=== PATIENT | male | born 1955 | race Two or more races ===

== ENCOUNTER 2016-08-01 12:04 | Inpatient (IN) | payer BC ==
[~2016-08-01] VITALS: Ht 188 cm; Wt 102.0 kg
[2016-08-01] MEDS ORDERED: MAGNESIUM HYDROXIDE 30ML CUP PO PRN (14:30)
[2016-08-01] MEDS ORDERED: BISACODYL 10 MG SUPP PR PRN (14:30)
[2016-08-01] MEDS ORDERED: LACTULOSE 30ML CUP PO PRN (14:30)
[2016-08-01 14:31] VITALS: Ht 188 cm; Wt 102.0 kg
[2016-08-01 14:43] VITALS: BP 131/67; PULSE 85; RESP 18
[2016-08-01] MEDS ORDERED: ACETAMINOPHEN 325 MG TAB PO PRN (15:00)
[2016-08-01] MEDS ORDERED: GLUCOSE GEL 15 GRAM TUBE PO PRN ×2 (15:30)
[2016-08-01] MEDS ORDERED: GLUCAGON 1 MG INJ IM PRN (15:30)
[2016-08-01] MEDS ORDERED: DEXTROSE 50% 50 ML SYRINGE IV PRN ×2 (15:30)
[2016-08-01] MEDS ORDERED: GLUCOSE GEL 15 GRAM TUBE BUCCAL PRN (15:30)
[2016-08-01] MEDS: INSULIN ASPART [NOVOLOG] 3 ML PEN SC SCH ×3 (17:13→21:00)
[2016-08-01] MEDS: HYDROCODONE/APAP (5/325) TAB PO PRN ×2 (17:57→21:45)
[2016-08-01 20:00] VITALS: BP 129/62; PULSE 79; RESP 18
[2016-08-01] MEDS: SENNA TAB PO SCH (20:15)
[2016-08-01] MEDS: NASACORT NASAL SCH (20:15)
[2016-08-01] MEDS: ATORVASTATIN 20 MG TAB PO SCH (20:15)
[2016-08-01] MEDS: MONTELUKAST 10 MG TAB PO SCH (20:15)
[2016-08-01] MEDS: DOCUSATE SODIUM 100 MG CAP PO SCH (20:15)
[2016-08-01] MEDS: INSULIN GLARGINE [LANtus] 3 ML PEN SC SCH (21:44)
[2016-08-01 23:38] LABS: ADD UMIC NO; URINE BILIRUBIN (Dip) 1+ (NEGATIVE); URINE BLOOD (Dip) NEGATIVE (NEGATIVE); URINE COLOR YELLOW (YELLOW); URINE KETONES (Dip) TRACE (NEGATIVE); URINE LEUKOCYTE ESTERASE (Dip) NEGATIVE (NEGATIVE); URINE NITRITE (Dip) NEGATIVE (NEGATIVE); URINE TOTAL PROTEIN (Dip) NEGATIVE (NEGATIVE); URINE UROBILINOGEN (Dip) >8.0 E.U./dL (0.1-1.0)
[2016-08-01 23:50] LABS: ICTOTEST NEGATIVE (NEGATIVE)
[2016-08-02] MEDS ORDERED: ACETAMINOPHEN 325 MG TAB PO PRN (01:30)
[2016-08-02] MEDS: ACCUCHECK XX SCH (02:00)
[2016-08-02 07:00] VITALS: BP 130/70; RESP 18
[2016-08-02 08:00] VITALS: BP 130/60; RESP 18
[2016-08-02] MEDS: ASPIRIN 81 MG TAB PO SCH (08:09)
[2016-08-02] MEDS: HYDROCODONE/APAP (5/325) TAB PO PRN ×3 (08:09→20:50)
[2016-08-02] MEDS: FISH OIL 1,000 MG CAP PO SCH (08:09)
[2016-08-02] MEDS: DOCUSATE SODIUM 100 MG CAP PO SCH ×2 (08:09→20:49)
[2016-08-02] MEDS: LISINOPRIL 10 MG TAB PO SCH (08:10)
[2016-08-02] MEDS: INSULIN ASPART [NOVOLOG] 3 ML PEN SC SCH ×7 (08:17→20:52)
[2016-08-02 08:38] LABS: BASOPHIL # 0.1 10^3/ul (0.0-0.1); BASOPHILS % 0.6 % (0.0-2.0); EOSINOPHILS # 0.6 10^3/ul (0.0-0.5); EOSINOPHILS % 7.1 % (0.0-7.0); HEMATOCRIT 38.4 % (42.0-52.0); HEMOGLOBIN 12.8 g/dl (14.0-18.0); LYMPHOCYTES # 1.5 10^3/ul (0.8-2.9); MEAN CORPUSCULAR HGB CONC 33.3 g/dl (32.0-37.0); MEAN CORPUSCULAR VOLUME 93.1 fl (82.0-101.0); MEAN PLATELET VOLUME 7.5 fl (7.4-10.4); MONOCYTE # 0.8 10^3/ul (0.3-0.9); MONOCYTES % 10.1 % (0.0-11.0); NEUTROPHIL # 5.4 10^3/ul (1.6-7.5); NEUTROPHILS % 64.2 % (39.0-77.0); PLATELET COUNT 421 10^3/UL (140-440); RED BLOOD COUNT 4.12 10^6/ul (4.70-6.10); RED CELL DISTRIBUTION WIDTH 12.7 % (11.5-14.5); UNCORRECTED WBC 8.4 10^3/ul (4.8-10.8); WHITE BLOOD COUNT 8.4 10^3/ul (4.8-10.8)
[2016-08-02 08:43] LABS: CONDITION 1
[2016-08-02 08:56] LABS: ALBUMIN 3.9 g/dl (3.3-4.9); POTASSIUM 4.5 mmol/L (3.5-5.1)
[2016-08-02 08:58] LABS: BILIRUBIN,INDIRECT 0.7 mg/dl (0-1.1); BILIRUBIN,TOTAL 0.7 mg/dl (0.2-1.3); CREATININE 0.73 mg/dl (0.61-1.24)
[2016-08-02 08:59] LABS: ALBUMIN/GLOBULIN RATIO 1.08; CALCIUM 9.2 mg/dl (8.4-10.2); TOTAL PROTEIN 7.5 g/dl (6.1-8.1)
[2016-08-02] MEDS: INSULIN GLARGINE [LANtus] 3 ML PEN SC SCH ×2 (09:29→20:52)
--- NOTE | 2016-08-02 13:52 | CONS ---
DATE OF ADMISSION: 08/01/2016 DATE OF CONSULTATION: 08/02/2016 REHABILITATION POST ADMISSION PHYSICIAN EVALUATION REHABILITATION IMPAIRMENT CATEGORY: Left intertrochanteric hip fracture status post intramedullary rodding. ACTIVE COMORBIDITIES: 1. Acute pain syndrome. 2. Diabetes mellitus. 3. Hypertension. 4. Hyperlipidemia. 5. History of left tib/fib and patellar fracture, status post open reduction internal fixation. 6. Impairments in self-care and mobility. HISTORY OF PRESENT ILLNESS: The patient is a pleasant 60-year-old gentleman who is status post a mechanical fall with a resultant left intertrochanteric hip fracture. The patient underwent intramedullary rodding with a postoperative course notable for constipation, acute pain, and significant impairments in self-care and mobility as compared to baseline. The patient has been cleared to transfer to the rehabilitation unit for comprehensive interdisciplinary rehab care. FUNCTIONAL HISTORY: Prior to recent events, he was independent in self-care tasks and mobility. Currently the patient requires moderate assist for self- care activities, minimal to moderate assist for mobility tasks. I have reviewed the preadmission screen and the patient's current functional status is consistent with the preadmission screen. SOCIAL HISTORY: The patient reports living at home alone and hopes to return there upon discharge. PAST MEDICAL HISTORY: 1. Hypertension. 2. Diabetes mellitus. 3. Obesity. 4. Hyperlipidemia. 5. History of left tib/fib and patellar fracture, status post ORIF. CURRENT MEDICATIONS: 1. Aspirin 81 mg p.o. daily. 2. Lantus 30 units subcutaneous b.i.d. 3. NovoLog 25 units subcutaneous t.i.d. 4. Lisinopril 10 mg p.o. daily. 5. Singulair 10 mg p.o. daily. 6. Fish oil 500 mg p.o. daily. 7. Lipitor 20 mg p.o. at bedtime. 8. Butner p.r.n. ALLERGIES: OXYCODONE. PHYSICAL EXAMINATION: VITAL SIGNS: The patient is currently afebrile, with stable vital signs. HEENT: Extraocular motions intact. Oropharynx is clear. NECK: Supple. LUNGS: Clear anteriorly. CARDIAC: S1, S2. ABDOMEN: Soft, nontender, positive bowel sounds. NEUROLOGIC: He is awake, alert and oriented x3. He can follow simple 1-step commands. Cranial nerves appear grossly intact. He has good strength in the bilateral upper extremities and the right lower extremity. Dorsiflexion and plantar flexion are intact on the left. PLAN: The patient has been admitted for comprehensive interdisciplinary acute rehab and is anticipated to tolerate 3 hours of daily therapy in divided doses for at least 5/7 days a week. Treatment plan will include: 1. Physical therapy to focus on bed mobility, transfers, and household ambulation, with the goal of having the patient reach a standby assist level. 2. Occupational therapy to focus on hygiene, grooming, dressing, bathing, and toileting activities, with the goal of having the patient reach a standby assist level. 3. Rehabilitation nursing for carryover of therapeutic interventions, with the goal of continent of bowel and bladder and the goal of pain adequately managed on oral medications. ESTIMATED LENGTH OF STAY: 10 days. DISPOSITION GOAL: Home. Rehabilitation Barrier: Pain Intervention for Barrier: Interdisciplinary rehab I acknowledge that I have performed a full physical examination on this patient within 24 hours of admission to the rehabilitation unit and believe the patient is a good candidate for comprehensive interdisciplinary rehab care and is anticipated to make reasonable goals in a reasonable period of time, as outlined above. Dictated By: BUDDY ESQUIVEL/WARNER Conf#: [id number] DID#: [id number]
[2016-08-02] MEDS: PANTOPRAZOLE (EC) 40 MG TAB PO SCH (14:43)
--- NOTE | 2016-08-02 17:47 | HP ---
DATE OF ADMISSION: 08/01/2016 CHIEF COMPLAINT: Status post hip fracture. HISTORY OF PRESENT ILLNESS: This is a 60-year-old male with a past medical history of type 1 diabet es, history of hypertension, dyslipidemia, who was admitted to [facility] after suffering a ground level fall causing an intertrochanteric fracture. The patient was [facility], underwent successful ORIF by Dr. Yu. The patient had no immediate postoperative complications; however, there was a significant decline in premorbid status. As a result, the patient was brought to the [facility] for continued care. Upon my evaluation, the patient at this time, is currently stable. Denies any fevers, chills, nause a, vomiting or shortness of breath. PAST MEDICAL HISTORY: History of hypertension, diabetes, obesity, dyslipidemia. PAST SURGICAL HISTORY: The patient has had orthopedic surgery of his left knee. FAMILY HISTORY: No family history of kidney disease, heart disease. SOCIAL HISTORY: Does not drink, smoke or do drugs. MEDICATIONS: The patient's medications have been reviewed. REVIEW OF SYSTEMS: A 14-point review of systems was conducted. Pertinent positives as stated in HP I; otherwise, negative. PHYSICAL EXAMINATION VITAL SIGNS: Blood pressure is 130/60, respiration 18, pulse 79, temperature 98.1. HEENT: Head is normocephalic. NECK: Supple. HEART: Regular rate. LUNGS: Diminished breath sounds at base. ABDOMEN: Soft, nontender to palpation. No rebound or guarding. EXTREMITIES: Negative for clubbing, cyanosis, edema. DERMATOLOGIC: No rashes. MUSCULOSKELETAL: No joint effusion. Patient has dressing over his left hip; clean, dry, intact. NEUROLOGIC: No focal deficits. LABORATORY DATA: Shows sodium 139, potassium 4.5, chloride 98, BUN 16, creatinine 0.73. White coun t 8.4, hemoglobin 12.8, hematocrit 38.4, platelet count is 421. Patient's urine cultures no growth after 24 hours. ASSESSMENT AND PLAN This is a 60-year-old male who presents with: 1. Status post open reduction internal fixation of the left hip. The patient is currently stable. Plan is for PT/OT. Continue pain control, deep venous thrombosis prophylaxis with Lovenox. 2. Type 1 diabetes. Continue current insulin regimen, Accu-Cheks, insulin sliding scale. 3. Dyslipidemia. Continue statin therapy. 4. History of hypertension. Blood pressure currently controlled. Continue current blood pressure regimen. 5. HISTORY OF ALLERGIES. Continue Singulair. 6. Gastrointestinal and deep venous thrombosis prophylaxis. Continue Lovenox and Protonix. 7. Hyperlipidemia. Continue fish oil. 8. Mild anemia. Monitor hemoglobin and hematocrit levels. Please note I spent up to 20 minutes' time discussing the patient's code status. THE PATIENT IS FUL L CODE. Dictated By: ARMANDO ATWOOD/WARNER Conf#: [id number] DID#: [id number]
[2016-08-02 20:00] VITALS: BP 130/64; PULSE 73; RESP 20
[2016-08-02] MEDS: NASACORT NASAL SCH (20:49)
[2016-08-02] MEDS: SENNA TAB PO SCH (20:50)
[2016-08-02] MEDS: MONTELUKAST 10 MG TAB PO SCH (20:50)
[2016-08-02] MEDS: ATORVASTATIN 20 MG TAB PO SCH (20:50)
[2016-08-03] MEDS: ACCUCHECK XX SCH (02:00)
[2016-08-03] MEDS: PANTOPRAZOLE (EC) 40 MG TAB PO SCH (06:00)
[2016-08-03] MEDS: HYDROCODONE/APAP (5/325) TAB PO PRN ×3 (06:02→21:50)
[2016-08-03 07:30] VITALS: BP 116/64; RESP 18
[2016-08-03 08:00] VITALS: BP 116/64; PULSE 81; RESP 18
[2016-08-03] MEDS: INSULIN ASPART [NOVOLOG] 3 ML PEN SC SCH ×7 (08:51→21:00)
[2016-08-03] MEDS: INSULIN GLARGINE [LANtus] 3 ML PEN SC SCH ×2 (08:52→22:04)
[2016-08-03] MEDS: ENOXAPARIN 40 MG/0.4 ML SYG SC SCH (08:53)
[2016-08-03] MEDS: FISH OIL 1,000 MG CAP PO SCH ×2 (09:00→21:51)
[2016-08-03] MEDS: ASPIRIN 81 MG TAB PO SCH (09:00)
[2016-08-03] MEDS: LISINOPRIL 10 MG TAB PO SCH (09:00)
[2016-08-03] MEDS: DOCUSATE SODIUM 100 MG CAP PO SCH ×2 (09:00→21:56)
--- NOTE | 2016-08-03 18:11 | PN ---
DATE: SUBJECTIVE: The patient is stable. No acute events overnight. No fevers, chills, nausea, vomiting , shortness of breath. OBJECTIVE: VITAL SIGNS: Blood pressure 116/64, respiration 18, pulse 81, temperature 98.9. HEENT: Head is normocephalic. NECK: Supple. HEART: Regular rate. LUNGS: Show diminished breath sounds at base. ABDOMEN: Soft, nontender to palpation. No rebound or guarding. EXTREMITIES: Negative for clubbing, cyanosis, edema. DERMATOLOGIC: No rashes. MUSCULOSKELETAL: No joint effusions. NEUROLOGIC: No change in exam. MEDICATIONS: Reviewed. LABORATORY DATA: Have been reviewed. ASSESSMENT AND PLAN: 1. Status post open reduction, internal fixation of the left hip. The patient is currently stable. Continue PT, OT. 2. Type 1 diabetes with episode of hypoglycemia. The patient's insulin regimen will be adjusted. We will place an endocrine consult, Dr. Padilla, for evaluation. 3. therapy. 4. Hypertension. Continue current blood pressure regimen. 5. Dyslipidemia. Continue fish oil. 6. Anemia. Continue to monitor hemoglobin and hematocrit levels. 7. GI and DVT prophylaxis. Continue PPI and Lovenox. Dictated By: ARMANDO ATWOOD/WARNER Conf#: [id number] DID#: [id number]
[2016-08-03 20:00] VITALS: BP 118/56; PULSE 80; RESP 18
[2016-08-03 20:10] VITALS: BP 118/56; RESP 18
[2016-08-03] MEDS ORDERED: INSULIN GLARGINE [LANtus] 3 ML PEN SC SCH (21:00)
[2016-08-03] MEDS: NASACORT NASAL SCH (21:49)
[2016-08-03] MEDS: SENNA TAB PO SCH (21:51)
[2016-08-03] MEDS: ATORVASTATIN 20 MG TAB PO SCH (21:51)
[2016-08-03] MEDS: MONTELUKAST 10 MG TAB PO SCH (21:52)
[2016-08-04] MEDS: ACCUCHECK XX SCH (02:00)
[2016-08-04] MEDS: PANTOPRAZOLE (EC) 40 MG TAB PO SCH (06:17)
[2016-08-04] MEDS: HYDROCODONE/APAP (5/325) TAB PO PRN ×4 (07:14→21:02)
[2016-08-04 07:30] VITALS: BP 128/63; RESP 18
[2016-08-04 07:53] LABS: ALBUMIN 3.8 g/dl (3.3-4.9); POTASSIUM 5.6 mmol/L (3.5-5.1)
[2016-08-04 07:55] LABS: CREATININE 0.78 mg/dl (0.61-1.24)
[2016-08-04 07:56] LABS: ALBUMIN/GLOBULIN RATIO 1.05; BILIRUBIN,INDIRECT 0.6 mg/dl (0-1.1); BILIRUBIN,TOTAL 0.6 mg/dl (0.2-1.3); CALCIUM 9.1 mg/dl (8.4-10.2); TOTAL PROTEIN 7.4 g/dl (6.1-8.1)
[2016-08-04] MEDS: FISH OIL 1,000 MG CAP PO SCH ×2 (07:58→21:01)
[2016-08-04] MEDS: LISINOPRIL 10 MG TAB PO SCH (08:01)
[2016-08-04] MEDS: ASPIRIN 81 MG TAB PO SCH (08:01)
[2016-08-04] MEDS: INSULIN GLARGINE [LANtus] 3 ML PEN SC SCH ×2 (08:03→22:36)
[2016-08-04] MEDS: INSULIN ASPART [NOVOLOG] 3 ML PEN SC SCH ×7 (08:03→21:00)
[2016-08-04] MEDS: ENOXAPARIN 40 MG/0.4 ML SYG SC SCH (08:05)
[2016-08-04] MEDS: DOCUSATE SODIUM 100 MG CAP PO SCH ×2 (09:08→21:01)
[2016-08-04] MEDS ORDERED: HYDROCODONE/APAP (5/325) TAB PO PRN (10:00)
--- NOTE | 2016-08-04 10:31 | PN ---
DATE: 08/04/2016 SUBJECTIVE: The patient is stable, no acute events overnight. No fevers, chills, nausea or vomitin g. No shortness of breath. OBJECTIVE: VITAL SIGNS: Blood pressure is 120/60, respiration 18, pulse 58 and temperature 98.3. HEENT: Head is normocephalic. NECK: Supple. HEART: Regular rate. LUNGS: Show diminished breath sounds at base. ABDOMEN: Soft, nontender to palpation. No rebound or guarding. EXTREMITIES: Negative for clubbing, cyanosis and no edema. DERMATOLOGIC: No rashes. MUSCULOSKELETAL: No joint effusions. NEUROLOGIC: No change in exam. MEDICATIONS: The patient's medications have been reviewed. LABORATORY DATA: Shows sodium 135, potassium 5.6, BUN 18, creatinine 0.78 and glucose is 300. ASSESSMENT AND PLAN: 1. Status post open reduction internal fixation of the left hip. The patient is currently stable. Continue PT, OT. 2. Type 1 diabetes with intermittent episodes of hypoglycemia. Continue current insulin regimen. Greatly appreciate Dr. Padilla's help with management. 3. Hyperkalemia. Etiology is likely due to underlying hypoglycemia and insulinopenic state. The p alcides would be to give insulin. Once the patient is euglycemic, expect the potassium levels to normal ize. Will repeat a potassium level and monitor. 4. Hypertension. Continue current blood pressure regimen. 5. Dyslipidemia. Continue fish oil. 6. Anemia. Continue to monitor H and H levels. 7. Gastrointestinal and deep venous thrombosis prophylaxis. Continue proton pump inhibitor and Tori enox. Dictated By: ARMANDO ATWOOD/WARNER Conf#: [id number] DID#: [id number]
--- NOTE | 2016-08-04 11:26 | CONS ---
Date/Time of Note Date/Time of Note DATE: 08/04/16 TIME: 11:24 Consult Date/Type/Reason Admit Date/Time Aug 01, 2016 at 12:06 Initial Consult Date Subjective Pain improving Objective min assist ambulation Vital Signs Date Time Temp Pulse Resp B/P Pulse Ox O2 Delivery O2 Flow Rate FiO2 08/04/16 07:30 98.3 78 18 128/63 94 08/03/16 20:00 Room Air Intake and Output 08/03/16 08/03/16 08/04/16 14:59 22:59 06:59 Intake Total 720 ml 1310 ml 360 ml Output Total 500 ml 1000 ml Balance 220 ml 1310 ml -640 ml Results/Medications Result Diagram: 08/02/16 0735 08/04/16 0636 Results 24 hrs Laboratory Tests Test 08/03/16 17:13 08/03/16 20:06 08/03/16 21:08 08/03/16 22:00 Bedside Glucose 74 74 96 121 Test 08/04/16 06:36 08/04/16 07:19 Alanine Aminotransferase (ALT/SGPT) 21 Albumin 3.8 Albumin/Globulin Ratio 1.05 Alkaline Phosphatase 123 H Anion Gap 18 H Aspartate Amino Transf (AST/SGOT) 27 Blood Urea Nitrogen 18 Calcium Level 9.1 Carbon Dioxide Level 26 Chloride Level 97 Creatinine 0.78 Direct Bilirubin 0.00 Globulin 3.60 H Glucose Level 299 #H Hemoglobin A1c 8.0 H Indirect Bilirubin 0.6 Potassium Level 5.6 H Sodium Level 135 Total Bilirubin 0.6 Total Protein 7.4 Bedside Glucose 350 H Medications Current Medications Docusate Sodium (Colace) 100 mg BID PO Last administered on 08/04/16 09:08; Admin Dose 100 MG; Start 08/01/16 at 21:00 Senna (Senokot) 1 tab HS PO Last administered on 08/03/16 21:51; Admin Dose 1 TAB; Start 08/01/16 at 21:00 Magnesium Hydroxide (Milk Of Mag) 30 ml BID PRN PO CONSTIPATION; Start at 14:30 Lactulose (Enulose) 20 gm DAILY PRN PO CONSTIPATION; Start 08/01/16 at 14:30 Bisacodyl (Dulcolax Supp) 10 mg DAILY PRN [place] CONSTIPATION; Start 08/01/16 at 14:30 Patient Own Medication 1 ea HS NASAL Last administered on 08/03/16 21:49; Admin Dose 1 EA; Start 08/01/16 at 21:00 Diagnostic Test (Pha) (Accucheck) 1 ea 02 XX ; Start 08/02/16 at 02:00 Aspirin (Aspirin) 81 mg DAILY PO Last administered on 08/04/16 08:01; Admin Dose 81 MG; Start 08/02/16 at 09:00 Lisinopril (Zestril) 10 mg DAILY PO Last administered on 08/04/16 08:01; Admin Dose 10 MG; Start 08/02/16 at 09:00 Montelukast Sodium (Singulair) 10 mg HS PO Last administered on 08/03/16 21:52 ; Admin Dose 10 MG; Start 08/01/16 at 21:00 Atorvastatin Calcium (Lipitor) 20 mg HS PO Last administered on 08/03/16 21:51 ; Admin Dose 20 MG; Start 08/01/16 at 21:00 Acetaminophen (Tylenol Tab) 650 mg Q6H PRN PO PAIN AND OR ELEVATED TEMP; Start 08/01/16 at 15:00 Miscellaneous Information 1 ea NOTE XX ; Start 08/01/16 at 15:30 Glucose (Glutose) 15 gm Q15M PRN PO DECREASED GLUCOSE; Start 08/01/16 at 15:30 Glucose (Glutose) 22.5 gm Q15M PRN PO DECREASED GLUCOSE; Start 08/01/16 at 15: 30 Dextrose (D50w Syringe) 25 ml Q15M PRN IV DECREASED GLUCOSE; Start 08/01/16 at 15:30 Dextrose (D50w Syringe) 50 ml Q15M PRN IV DECREASED GLUCOSE; Start 08/01/16 at 15:30 Glucagon (Glucagen) 1 mg Q15M PRN IM DECREASED GLUCOSE; Start 08/01/16 at 15: 30 Glucose (Glutose) 15 gm Q15M PRN BUCCAL DECREASED GLUCOSE; Start 08/01/16 at 15:30 Enoxaparin Sodium (Lovenox) 40 mg DAILY SC Last administered on 08/04/16 08:05 ; Admin Dose 40 MG; Start 08/03/16 at 09:00 Pantoprazole (Protonix Tab) 40 mg DAILY@06 PO Last administered on 08/04/16 06: 17; Admin Dose 40 MG; Start 08/02/16 at 13:30 Fish Oil (Fish Oil) 2,000 mg BID PO Last administered on 08/04/16 07:58; Admin Dose 2,000 MG; Start 08/03/16 at 21:00 Insulin Glargine (Lantus) 20 unit QHS SC Last administered on 08/03/16 22:04; Admin Dose 10 UNIT; Start 08/03/16 at 21:00 Insulin Glargine (Lantus) 30 unit QAM SC Last administered on 08/04/16 08:03; Admin Dose 30 UNIT; Start 08/04/16 at 09:00 Acetaminophen/ Hydrocodone Bitart ([place] (5/325)) 2 tab Q4H PRN PO PAIN LEVEL 6 -10 Last administered on 08/04/16 09:41; Admin Dose 1 TAB; Start 08/04/16 at 09: 30 Acetaminophen/ Hydrocodone Bitart ([place] (5/325)) 1 tab Q4H PRN PO PAIN LEVEL 1 -5; Start 08/04/16 at 10:00 Assessment/Plan Additional Assessment/Plan Rehab- Left intertrochanteric hip fracture status post intramedullary rodding. Excellent progress with rehab Acute pain syndrome-improving Diabetes mellitus. Hypertension. Hyperlipidemia. History of left tib/fib and patellar fracture, status post open reduction internal fixation. BUDDY DUGGAN MD Aug 04, 2016 11:26
[2016-08-04 19:10] VITALS: BP 128/68; RESP 18
[2016-08-04] MEDS: ATORVASTATIN 20 MG TAB PO SCH (21:01)
[2016-08-04] MEDS: SENNA TAB PO SCH (21:01)
[2016-08-04] MEDS: MONTELUKAST 10 MG TAB PO SCH (21:01)
[2016-08-04] MEDS: NASACORT NASAL SCH (21:01)
[2016-08-05] MEDS: ACCUCHECK XX SCH (02:00)
[2016-08-05] MEDS: HYDROCODONE/APAP (5/325) TAB PO PRN ×4 (02:51→19:33)
[2016-08-05] MEDS: PANTOPRAZOLE (EC) 40 MG TAB PO SCH (06:21)
[2016-08-05 07:30] VITALS: BP 121/59; RESP 18
[2016-08-05] MEDS: INSULIN ASPART [NOVOLOG] 3 ML PEN SC SCH ×7 (07:35→21:00)
[2016-08-05] MEDS: FISH OIL 1,000 MG CAP PO SCH ×2 (08:34→21:10)
[2016-08-05] MEDS: LISINOPRIL 10 MG TAB PO SCH (08:34)
[2016-08-05] MEDS: DOCUSATE SODIUM 100 MG CAP PO SCH ×2 (08:34→21:10)
[2016-08-05] MEDS: ASPIRIN 81 MG TAB PO SCH (08:34)
[2016-08-05] MEDS: ENOXAPARIN 40 MG/0.4 ML SYG SC SCH (08:35)
[2016-08-05] MEDS: INSULIN GLARGINE [LANtus] 3 ML PEN SC SCH ×2 (08:36→21:15)
--- NOTE | 2016-08-05 11:10 | CONS ---
Date/Time of Note Date/Time of Note DATE: 08/05/16 TIME: 11:10 Consult Date/Type/Reason Admit Date/Time Aug 01, 2016 at 12:06 Subjective Pain under adequate control Objective Vital Signs Date Time Temp Pulse Resp B/P Pulse Ox O2 Delivery O2 Flow Rate FiO2 08/05/16 07:30 97.8 74 18 121/59 95 08/03/16 20:00 Room Air Intake and Output 08/04/16 08/04/16 08/05/16 15:00 23:00 07:00 Intake Total 480 ml 640 ml 300 ml Output Total 775 ml 750 ml Balance -295 ml -110 ml 300 ml INTERDISCIPLINARY TEAM CONFERENCE BOWEL- Cont BLADDER-Cont SKIN- intact OT- DRESSING-sba/min BATHING-sba/min TOILETING-min PT- BED MOBILITY-min TRANSFERS-min AMBULATION-min 100 feet A/P- Interdisciplinary team conference held today. Please see interdisciplinary sheet. Working toward d.c. on 08/08 with post discharge follow up of physical therapy, occupational therapy. Results/Medications Result Diagram: 08/02/16 0735 08/04/16 1424 Results 24 hrs Laboratory Tests Test 08/04/16 12:02 08/04/16 14:24 08/04/16 16:33 08/04/16 17:14 Bedside Glucose 230 H 59 L 105 Potassium Level 4.5 Test 08/04/16 17:33 08/04/16 21:30 08/04/16 21:55 08/04/16 22:31 Bedside Glucose 96 77 96 96 Test 08/05/16 07:22 Bedside Glucose 324 H Medications Current Medications Docusate Sodium (Colace) 100 mg BID PO Last administered on 08/05/16 08:34; Admin Dose 100 MG; Start 08/01/16 at 21:00 Senna (Senokot) 1 tab HS PO Last administered on 08/04/16 21:01; Admin Dose 1 TAB; Start 08/01/16 at 21:00 Magnesium Hydroxide (Milk Of Mag) 30 ml BID PRN PO CONSTIPATION; Start at 14:30 Lactulose (Enulose) 20 gm DAILY PRN PO CONSTIPATION; Start 08/01/16 at 14:30 Bisacodyl (Dulcolax Supp) 10 mg DAILY PRN [place] CONSTIPATION; Start 08/01/16 at 14:30 Patient Own Medication 1 ea HS NASAL Last administered on 08/04/16 21:01; Admin Dose 1 EA; Start 08/01/16 at 21:00 Diagnostic Test (Pha) (Accucheck) 1 ea 02 XX ; Start 08/02/16 at 02:00 Aspirin (Aspirin) 81 mg DAILY PO Last administered on 08/05/16 08:34; Admin Dose 81 MG; Start 08/02/16 at 09:00 Lisinopril (Zestril) 10 mg DAILY PO Last administered on 08/05/16 08:34; Admin Dose 10 MG; Start 08/02/16 at 09:00 Montelukast Sodium (Singulair) 10 mg HS PO Last administered on 08/04/16 21:01 ; Admin Dose 10 MG; Start 08/01/16 at 21:00 Atorvastatin Calcium (Lipitor) 20 mg HS PO Last administered on 08/04/16 21:01 ; Admin Dose 20 MG; Start 08/01/16 at 21:00 Acetaminophen (Tylenol Tab) 650 mg Q6H PRN PO PAIN AND OR ELEVATED TEMP; Start 08/01/16 at 15:00 Miscellaneous Information 1 ea NOTE XX ; Start 08/01/16 at 15:30 Glucose (Glutose) 15 gm Q15M PRN PO DECREASED GLUCOSE; Start 08/01/16 at 15:30 Glucose (Glutose) 22.5 gm Q15M PRN PO DECREASED GLUCOSE; Start 08/01/16 at 15: 30 Dextrose (D50w Syringe) 25 ml Q15M PRN IV DECREASED GLUCOSE; Start 08/01/16 at 15:30 Dextrose (D50w Syringe) 50 ml Q15M PRN IV DECREASED GLUCOSE; Start 08/01/16 at 15:30 Glucagon (Glucagen) 1 mg Q15M PRN IM DECREASED GLUCOSE; Start 08/01/16 at 15: 30 Glucose (Glutose) 15 gm Q15M PRN BUCCAL DECREASED GLUCOSE; Start 08/01/16 at 15:30 Enoxaparin Sodium (Lovenox) 40 mg DAILY SC Last administered on 08/05/16 08:35 ; Admin Dose 40 MG; Start 08/03/16 at 09:00 Pantoprazole (Protonix Tab) 40 mg DAILY@06 PO Last administered on 08/05/16 06: 21; Admin Dose 40 MG; Start 08/02/16 at 13:30 Fish Oil (Fish Oil) 2,000 mg BID PO Last administered on 08/05/16 08:34; Admin Dose 2,000 MG; Start 08/03/16 at 21:00 Insulin Glargine (Lantus) 20 unit QHS SC Last administered on 08/04/16 22:36; Admin Dose 10 UNIT; Start 08/03/16 at 21:00 Insulin Glargine (Lantus) 30 unit QAM SC Last administered on 08/05/16 08:36; Admin Dose 30 UNIT; Start 08/04/16 at 09:00 Acetaminophen/ Hydrocodone Bitart ([place] (5/325)) 2 tab Q4H PRN PO PAIN LEVEL 6 -10 Last administered on 08/05/16 07:34; Admin Dose 2 TAB; Start 08/04/16 at 09: 30 Acetaminophen/ Hydrocodone Bitart ([place] (5/325)) 1 tab Q4H PRN PO PAIN LEVEL 1 -5; Start 08/04/16 at 10:00 BUDDY DUGGAN MD Aug 05, 2016 11:10
--- NOTE | 2016-08-05 12:02 | PN ---
DATE: 08/05/2016 SUBJECTIVE: The patient is stable, no acute events overnight. No fevers, chills, nausea, vomiting. OBJECTIVE: VITAL SIGNS: Blood pressure is 128/68, respiration 18, pulse 78, temperature 98.5. HEENT: Head is normocephalic. NECK: Supple. HEART: Regular rate. LUNGS: Show diminished breath sounds at base. ABDOMEN: Soft, nontender to palpation without rebound or guarding. EXTREMITIES: Negative for clubbing, cyanosis, no edema. DERMATOLOGIC: No rashes. MUSCULOSKELETAL: No joint effusions. NEUROLOGIC: No change in exam. MEDICATIONS: The patient's medications are reviewed. LABORATORY DATA: Have been reviewed. ASSESSMENT AND PLAN: 1. Status post open reduction and internal fixation left hip. The patient is currently stable. Co ntinue PT, OT. 2. Diabetes type 1. Continue current insulin regimen. Follow up with endocrinology. 3. Hyperkalemia, resolved, etiology is likely due to hypoglycemia. 4. Hypertension. Continue current blood pressure regimen. 5. Dyslipidemia. Continue fish oil. 6. Anemia. Continue to monitor H and H levels. 7. Gastrointestinal and deep venous thrombosis prophylaxis. Continue proton pump inhibitor and Tori enox. Dictated By: ARMANDO ATWOOD/WARNER Conf#: [id number] DID#: [id number]
--- NOTE | 2016-08-05 13:50 | CONS ---
Date/Time of Note Date/Time of Note DATE: 08/05/16 TIME: 13:46 Assessment/Plan Assessment/Plan Problems: (1) Diabetes mellitus type 1 Status: Chronic Comment: In general this gentleman has been managing his diabetes with minimal outside assistance. He receives his care at the [facility]. At this time going to make arrangements that he can modulate the insulin on his own and then as we see how he does try and fine-tune it. 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 Constitutional: no complaints Eyes: no complaints Respiratory: no complaints Cardiovascular: no complaints Gastrointestinal: no complaints Genitourinary: no complaints Musculoskeletal: other (Pain at left) Neurologic: no complaints Endocrine: no complaints Past Medical History Medical History: diabetes (Diabetes mellitus type 1), high cholesterol, hypertension Past Surgical History Status post tib-fib and patellar fracture with ORIF in the remote past; immediately status post ORIF of left hip fracture from a ground-level fall Family History Significant Family History: COPD Social History Alcohol Use: rarely Smoking Status: Former smoker Drug Use: none Exam/Review of Systems Vital Signs Vitals Vital Signs Date Time Temp Pulse Resp B/P Pulse Ox O2 Delivery O2 Flow Rate FiO2 08/05/16 07:30 97.8 74 18 121/59 95 08/03/16 20:00 Room Air Intake and Output 08/04/16 08/04/16 08/05/16 15:00 23:00 07:00 Intake Total 480 ml 640 ml 300 ml Output Total 775 ml 750 ml Balance -295 ml -110 ml 300 ml Exam Constitutional: alert Respiratory: clear to auscultation, normal air movement Cardiovascular: nl pulses, regular rate and rhythm Gastrointestinal: nl liver, spleen, non-tender, soft Results Result Diagram: 08/02/16 0735 08/04/16 1424 Results 24 hrs Laboratory Tests Test 08/04/16 14:24 08/04/16 16:33 08/04/16 17:14 08/04/16 17:33 Potassium Level 4.5 Bedside Glucose 59 L 105 96 Test 08/04/16 21:30 08/04/16 21:55 08/04/16 22:31 08/05/16 07:22 Bedside Glucose 77 96 96 324 H Test 08/05/16 12:00 Bedside Glucose 164 Medications Medications Current Medications Docusate Sodium (Colace) 100 mg BID PO Last administered on 08/05/16 08:34; Admin Dose 100 MG; Start 08/01/16 at 21:00 Senna (Senokot) 1 tab HS PO Last administered on 08/04/16 21:01; Admin Dose 1 TAB; Start 08/01/16 at 21:00 Magnesium Hydroxide (Milk Of Mag) 30 ml BID PRN PO CONSTIPATION; Start at 14:30 Lactulose (Enulose) 20 gm DAILY PRN PO CONSTIPATION; Start 08/01/16 at 14:30 Bisacodyl (Dulcolax Supp) 10 mg DAILY PRN [place] CONSTIPATION; Start 08/01/16 at 14:30 Patient Own Medication 1 ea HS NASAL Last administered on 08/04/16 21:01; Admin Dose 1 EA; Start 08/01/16 at 21:00 Diagnostic Test (Pha) (Accucheck) 1 ea 02 XX ; Start 08/02/16 at 02:00 Aspirin (Aspirin) 81 mg DAILY PO Last administered on 08/05/16 08:34; Admin Dose 81 MG; Start 08/02/16 at 09:00 Lisinopril (Zestril) 10 mg DAILY PO Last administered on 08/05/16 08:34; Admin Dose 10 MG; Start 08/02/16 at 09:00 Montelukast Sodium (Singulair) 10 mg HS PO Last administered on 08/04/16 21:01 ; Admin Dose 10 MG; Start 08/01/16 at 21:00 Atorvastatin Calcium (Lipitor) 20 mg HS PO Last administered on 08/04/16 21:01 ; Admin Dose 20 MG; Start 08/01/16 at 21:00 Acetaminophen (Tylenol Tab) 650 mg Q6H PRN PO PAIN AND OR ELEVATED TEMP; Start 08/01/16 at 15:00 Miscellaneous Information 1 ea NOTE XX ; Start 08/01/16 at 15:30 Glucose (Glutose) 15 gm Q15M PRN PO DECREASED GLUCOSE; Start 08/01/16 at 15:30 Glucose (Glutose) 22.5 gm Q15M PRN PO DECREASED GLUCOSE; Start 08/01/16 at 15: 30 Dextrose (D50w Syringe) 25 ml Q15M PRN IV DECREASED GLUCOSE; Start 08/01/16 at 15:30 Dextrose (D50w Syringe) 50 ml Q15M PRN IV DECREASED GLUCOSE; Start 08/01/16 at 15:30 Glucagon (Glucagen) 1 mg Q15M PRN IM DECREASED GLUCOSE; Start 08/01/16 at 15: 30 Glucose (Glutose) 15 gm Q15M PRN BUCCAL DECREASED GLUCOSE; Start 08/01/16 at 15:30 Enoxaparin Sodium (Lovenox) 40 mg DAILY SC Last administered on 08/05/16 08:35 ; Admin Dose 40 MG; Start 08/03/16 at 09:00 Pantoprazole (Protonix Tab) 40 mg DAILY@06 PO Last administered on 08/05/16 06: 21; Admin Dose 40 MG; Start 08/02/16 at 13:30 Fish Oil (Fish Oil) 2,000 mg BID PO Last administered on 08/05/16 08:34; Admin Dose 2,000 MG; Start 08/03/16 at 21:00 Insulin Glargine (Lantus) 20 unit QHS SC Last administered on 08/04/16 22:36; Admin Dose 10 UNIT; Start 08/03/16 at 21:00 Insulin Glargine (Lantus) 30 unit QAM SC Last administered on 08/05/16 08:36; Admin Dose 30 UNIT; Start 08/04/16 at 09:00 Acetaminophen/ Hydrocodone Bitart ([place] (5/325)) 2 tab Q4H PRN PO PAIN LEVEL 6 -10 Last administered on 08/05/16 12:18; Admin Dose 2 TAB; Start 08/04/16 at 09: 30 Acetaminophen/ Hydrocodone Bitart ([place] (5/325)) 1 tab Q4H PRN PO PAIN LEVEL 1 -5; Start 08/04/16 at 10:00 TEJAS FRIEDMAN MD Aug 05, 2016 13:50
[2016-08-05] MEDS ORDERED: LANT3I SC (17:38)
[2016-08-05] MEDS ORDERED: INSU100C SQ (17:38)
[2016-08-05] MEDS ORDERED: nasacort NASAL (17:38)
[2016-08-05] MEDS ORDERED: ASPI81TA3 PO (17:38)
[2016-08-05] MEDS ORDERED: LISI10TA2 PO (17:38)
[2016-08-05] MEDS ORDERED: MONT10TA21 PO (17:38)
[2016-08-05] MEDS ORDERED: OMEG500C3 PO (17:38)
[2016-08-05] MEDS ORDERED: CRES10 PO (17:38)
[2016-08-05 19:59] VITALS: BP 136/66; RESP 20
[2016-08-05] MEDS: SENNA TAB PO SCH ×2 (21:00→21:10)
[2016-08-05] MEDS: MONTELUKAST 10 MG TAB PO SCH (21:11)
[2016-08-05] MEDS: NASACORT NASAL SCH (21:11)
[2016-08-05] MEDS: ATORVASTATIN 20 MG TAB PO SCH (21:11)
[2016-08-06] MEDS: ACCUCHECK XX SCH (02:00)
[2016-08-06] MEDS: HYDROCODONE/APAP (5/325) TAB PO PRN ×3 (04:47→17:40)
[2016-08-06] MEDS: PANTOPRAZOLE (EC) 40 MG TAB PO SCH (06:47)
[2016-08-06 07:30] VITALS: BP 128/61; RESP 18
[2016-08-06 08:00] VITALS: BP 128/61; PULSE 61; RESP 18
[2016-08-06] MEDS: INSULIN ASPART [NOVOLOG] 3 ML PEN SC SCH ×7 (08:11→20:31)
[2016-08-06] MEDS: ENOXAPARIN 40 MG/0.4 ML SYG SC SCH (08:13)
[2016-08-06] MEDS: INSULIN GLARGINE [LANtus] 3 ML PEN SC SCH ×2 (08:13→20:28)
[2016-08-06] MEDS: FISH OIL 1,000 MG CAP PO SCH ×2 (08:14→20:09)
[2016-08-06] MEDS: DOCUSATE SODIUM 100 MG CAP PO SCH ×2 (08:15→20:09)
[2016-08-06] MEDS: ASPIRIN 81 MG TAB PO SCH (08:15)
[2016-08-06] MEDS: LISINOPRIL 10 MG TAB PO SCH (08:16)
--- NOTE | 2016-08-06 10:47 | PN ---
DATE: 08/06/2016 SUBJECTIVE: The patient is stable, no acute events overnight. No fevers, chills, nausea, vomiting. OBJECTIVE: VITAL SIGNS: Blood pressure 128/61, respirations 18, pulse 61, temperature 98.5. HEENT: Head is normocephalic. NECK: Supple. HEART: Regular rate. LUNGS: Show diminished breath sounds at the base. ABDOMEN: Soft, nontender to palpation. No rebound or guarding. EXTREMITIES: Negative for clubbing, cyanosis. No edema. DERMATOLOGIC: No rashes. MUSCULOSKELETAL: No joint effusions. NEUROLOGIC: No change in exam. MEDICATIONS: The patient's medications have been reviewed. LABORATORY DATA: Has been reviewed. No new labs. ASSESSMENT AND PLAN: 1. Status post open reduction internal fixation of the left hip. The patient is currently stable. Continue PT, OT. 2. Diabetes type. We will continue insulin current regimen. Follow up with endocrinology. 3. Hypokalemia, improved. 4. Hypertension. Continue current blood pressure regimen. 5. Dyslipidemia. Continue the fish oil. 6. Anemia. Continue to monitor hemoglobin and hematocrit levels. 7. GI and DVT prophylaxis. Continue proton pump inhibitors and sequential leg squeezers. Dictated By: ARMANDO ATWOOD/WARNER Conf#: [id number] DID#: [id number]
--- NOTE | 2016-08-06 11:06 | CONS ---
Date/Time of Note Date/Time of Note DATE: 08/06/16 TIME: 11:05 Consult Date/Type/Reason Admit Date/Time Aug 01, 2016 at 12:06 Type of Consultation: Endocrinology Ordering Provider: ARMANDO ARANA DO Subjective C/o constipation Objective Pulm- CTA Card -S1S2 min assist ambulation 150 feet Vital Signs Date Time Temp Pulse Resp B/P Pulse Ox O2 Delivery O2 Flow Rate FiO2 08/06/16 07:30 98.5 61 18 128/61 97 08/03/16 20:00 Room Air Intake and Output 08/05/16 08/05/16 08/06/16 15:00 23:00 07:00 Intake Total 200 ml 720 ml Output Total 300 ml 700 ml Balance -100 ml 20 ml Results/Medications Result Diagram: 08/02/16 0735 08/04/16 1424 Results 24 hrs Laboratory Tests Test 08/05/16 12:00 08/05/16 14:59 08/05/16 15:17 08/05/16 16:45 Bedside Glucose 164 51 L 71 97 Test 08/05/16 20:21 08/05/16 20:45 08/05/16 21:03 08/06/16 02:36 Bedside Glucose 63 L 83 100 85 Test 08/06/16 07:48 Bedside Glucose 208 Medications Current Medications Docusate Sodium (Colace) 100 mg BID PO Last administered on 08/06/16 08:15; Admin Dose 100 MG; Start 08/01/16 at 21:00 Senna (Senokot) 1 tab HS PO Last administered on 08/04/16 21:01; Admin Dose 1 TAB; Start 08/01/16 at 21:00 Magnesium Hydroxide (Milk Of Mag) 30 ml BID PRN PO CONSTIPATION Last administered on 08/06/16 08:16; Admin Dose 30 ML; Start 08/01/16 at 14:30 Lactulose (Enulose) 20 gm DAILY PRN PO CONSTIPATION; Start 08/01/16 at 14:30 Bisacodyl (Dulcolax Supp) 10 mg DAILY PRN [place] CONSTIPATION; Start 08/01/16 at 14:30 Patient Own Medication 1 ea HS NASAL Last administered on 08/05/16 21:11; Admin Dose 1 EA; Start 08/01/16 at 21:00 Diagnostic Test (Pha) (Accucheck) 1 ea 02 XX ; Start 08/02/16 at 02:00 Aspirin (Aspirin) 81 mg DAILY PO Last administered on 08/06/16 08:15; Admin Dose 81 MG; Start 08/02/16 at 09:00 Lisinopril (Zestril) 10 mg DAILY PO Last administered on 08/06/16 08:16; Admin Dose 10 MG; Start 08/02/16 at 09:00 Montelukast Sodium (Singulair) 10 mg HS PO Last administered on 08/05/16 21:11 ; Admin Dose 10 MG; Start 08/01/16 at 21:00 Atorvastatin Calcium (Lipitor) 20 mg HS PO Last administered on 08/05/16 21:11 ; Admin Dose 20 MG; Start 08/01/16 at 21:00 Acetaminophen (Tylenol Tab) 650 mg Q6H PRN PO PAIN AND OR ELEVATED TEMP; Start 08/01/16 at 15:00 Miscellaneous Information 1 ea NOTE XX ; Start 08/01/16 at 15:30 Glucose (Glutose) 15 gm Q15M PRN PO DECREASED GLUCOSE; Start 08/01/16 at 15:30 Glucose (Glutose) 22.5 gm Q15M PRN PO DECREASED GLUCOSE; Start 08/01/16 at 15: 30 Dextrose (D50w Syringe) 25 ml Q15M PRN IV DECREASED GLUCOSE; Start 08/01/16 at 15:30 Dextrose (D50w Syringe) 50 ml Q15M PRN IV DECREASED GLUCOSE; Start 08/01/16 at 15:30 Glucagon (Glucagen) 1 mg Q15M PRN IM DECREASED GLUCOSE; Start 08/01/16 at 15: 30 Glucose (Glutose) 15 gm Q15M PRN BUCCAL DECREASED GLUCOSE; Start 08/01/16 at 15:30 Enoxaparin Sodium (Lovenox) 40 mg DAILY SC Last administered on 08/06/16 08:13 ; Admin Dose 40 MG; Start 08/03/16 at 09:00 Pantoprazole (Protonix Tab) 40 mg DAILY@06 PO Last administered on 08/06/16 06: 47; Admin Dose 40 MG; Start 08/02/16 at 13:30 Fish Oil (Fish Oil) 2,000 mg BID PO Last administered on 08/06/16 08:14; Admin Dose 2,000 MG; Start 08/03/16 at 21:00 Acetaminophen/ Hydrocodone Bitart ([place] (5/325)) 2 tab Q4H PRN PO PAIN LEVEL 6 -10 Last administered on 08/06/16 08:48; Admin Dose 2 TAB; Start 08/04/16 at 09: 30 Acetaminophen/ Hydrocodone Bitart ([place] (5/325)) 1 tab Q4H PRN PO PAIN LEVEL 1 -5; Start 08/04/16 at 10:00 Insulin Glargine (Lantus) 15 unit QHS SC Last administered on 08/05/16 21:15; Admin Dose 15 UNIT; Start 08/05/16 at 21:00 Insulin Glargine (Lantus) 26 unit QAM SC Last administered on 08/06/16 08:13; Admin Dose 25 UNIT; Start 08/06/16 at 09:00 Assessment/Plan Additional Assessment/Plan Rehab- Left IT hip fx-s/p IMR Continued steady progress GI- bowel program DM HTN h.o. L tib/fib/patellar fx and ORIF BUDDY DUGGAN MD Aug 06, 2016 11:06
[2016-08-06] MEDS ORDERED: LACTULOSE 30ML CUP PO PRN (18:30)
[2016-08-06] MEDS: NASACORT NASAL SCH (20:09)
[2016-08-06] MEDS: MONTELUKAST 10 MG TAB PO SCH (20:09)
[2016-08-06] MEDS: SENNA TAB PO SCH (20:09)
[2016-08-06] MEDS: ATORVASTATIN 20 MG TAB PO SCH (20:09)
[2016-08-06 20:28] VITALS: BP 132/60; RESP 18
[2016-08-07] MEDS: ACCUCHECK XX SCH (03:16)
[2016-08-07] MEDS: HYDROCODONE/APAP (5/325) TAB PO PRN ×4 (04:53→20:47)
[2016-08-07] MEDS: PANTOPRAZOLE (EC) 40 MG TAB PO SCH (06:07)
[2016-08-07 07:10] VITALS: BP 120/58; RESP 18
[2016-08-07] MEDS: INSULIN ASPART [NOVOLOG] 3 ML PEN SC SCH ×7 (07:35→20:58)
[2016-08-07] MEDS: INSULIN GLARGINE [LANtus] 3 ML PEN SC SCH ×2 (08:33→20:58)
[2016-08-07] MEDS: ENOXAPARIN 40 MG/0.4 ML SYG SC SCH (08:34)
[2016-08-07] MEDS: DOCUSATE SODIUM 100 MG CAP PO SCH ×2 (08:36→20:47)
[2016-08-07] MEDS: FISH OIL 1,000 MG CAP PO SCH ×2 (08:36→20:46)
[2016-08-07] MEDS: ASPIRIN 81 MG TAB PO SCH (08:36)
[2016-08-07] MEDS: LISINOPRIL 10 MG TAB PO SCH (08:37)
--- NOTE | 2016-08-07 12:11 | CONS ---
Date/Time of Note Date/Time of Note DATE: 08/07/16 TIME: 12:11 Consult Date/Type/Reason Admit Date/Time Aug 01, 2016 at 12:06 Type of Consultation: Endocrinology Ordering Provider: ARMANDO ARANA DO Subjective Results with bowel program Objective sba ambulation Vital Signs Date Time Temp Pulse Resp B/P Pulse Ox O2 Delivery O2 Flow Rate FiO2 08/07/16 07:10 97.8 64 18 120/58 95 08/06/16 08:00 Room Air Intake and Output 08/06/16 08/06/16 08/07/16 15:00 23:00 07:00 Intake Total 720 ml 560 ml Output Total 400 ml Balance 320 ml 560 ml Results/Medications Result Diagram: 08/04/16 1424 Results 24 hrs Laboratory Tests Test 08/06/16 12:12 08/06/16 14:45 08/06/16 14:53 08/06/16 15:19 Bedside Glucose 115 56 L 77 74 Test 08/06/16 15:39 08/06/16 16:54 08/06/16 20:15 08/07/16 08:16 Bedside Glucose 87 127 124 221 H Medications Current Medications Docusate Sodium (Colace) 100 mg BID PO Last administered on 08/07/16 08:36; Admin Dose 100 MG; Start 08/01/16 at 21:00 Senna (Senokot) 1 tab HS PO Last administered on 08/06/16 20:09; Admin Dose 1 TAB; Start 08/01/16 at 21:00 Magnesium Hydroxide (Milk Of Mag) 30 ml BID PRN PO CONSTIPATION Last administered on 08/06/16 08:16; Admin Dose 30 ML; Start 08/01/16 at 14:30 Lactulose (Enulose) 20 gm DAILY PRN PO CONSTIPATION Last administered on 20:08; Admin Dose 20 GM; Start 08/01/16 at 14:30 Bisacodyl (Dulcolax Supp) 10 mg DAILY PRN [place] CONSTIPATION; Start 08/01/16 at 14:30 Patient Own Medication 1 ea HS NASAL Last administered on 08/06/16 20:09; Admin Dose 1 EA; Start 08/01/16 at 21:00 Diagnostic Test (Pha) (Accucheck) 1 ea 02 XX ; Start 08/02/16 at 02:00 Aspirin (Aspirin) 81 mg DAILY PO Last administered on 08/07/16 08:36; Admin Dose 81 MG; Start 08/02/16 at 09:00 Lisinopril (Zestril) 10 mg DAILY PO Last administered on 08/07/16 08:37; Admin Dose 10 MG; Start 08/02/16 at 09:00 Montelukast Sodium (Singulair) 10 mg HS PO Last administered on 08/06/16 20:09 ; Admin Dose 10 MG; Start 08/01/16 at 21:00 Atorvastatin Calcium (Lipitor) 20 mg HS PO Last administered on 08/06/16 20:09 ; Admin Dose 20 MG; Start 08/01/16 at 21:00 Acetaminophen (Tylenol Tab) 650 mg Q6H PRN PO PAIN AND OR ELEVATED TEMP; Start 08/01/16 at 15:00 Miscellaneous Information 1 ea NOTE XX ; Start 08/01/16 at 15:30 Glucose (Glutose) 15 gm Q15M PRN PO DECREASED GLUCOSE; Start 08/01/16 at 15:30 Glucose (Glutose) 22.5 gm Q15M PRN PO DECREASED GLUCOSE; Start 08/01/16 at 15: 30 Dextrose (D50w Syringe) 25 ml Q15M PRN IV DECREASED GLUCOSE; Start 08/01/16 at 15:30 Dextrose (D50w Syringe) 50 ml Q15M PRN IV DECREASED GLUCOSE; Start 08/01/16 at 15:30 Glucagon (Glucagen) 1 mg Q15M PRN IM DECREASED GLUCOSE; Start 08/01/16 at 15: 30 Glucose (Glutose) 15 gm Q15M PRN BUCCAL DECREASED GLUCOSE; Start 08/01/16 at 15:30 Enoxaparin Sodium (Lovenox) 40 mg DAILY SC Last administered on 08/07/16 08:34 ; Admin Dose 40 MG; Start 08/03/16 at 09:00 Pantoprazole (Protonix Tab) 40 mg DAILY@06 PO Last administered on 08/07/16 06: 07; Admin Dose 40 MG; Start 08/02/16 at 13:30 Fish Oil (Fish Oil) 2,000 mg BID PO Last administered on 08/07/16 08:36; Admin Dose 2,000 MG; Start 08/03/16 at 21:00 Acetaminophen/ Hydrocodone Bitart ([place] (5/325)) 2 tab Q4H PRN PO PAIN LEVEL 6 -10 Last administered on 08/07/16 09:40; Admin Dose 2 TAB; Start 08/04/16 at 09: 30 Acetaminophen/ Hydrocodone Bitart ([place] (5/325)) 1 tab Q4H PRN PO PAIN LEVEL 1 -5; Start 08/04/16 at 10:00 Insulin Glargine (Lantus) 15 unit QHS SC Last administered on 08/06/16 20:28; Admin Dose 15 UNIT; Start 08/05/16 at 21:00 Insulin Glargine (Lantus) 26 unit QAM SC Last administered on 08/07/16 08:33; Admin Dose 20 UNIT; Start 08/06/16 at 09:00 Lactulose (Enulose) 10 gm DAILY PRN PO CONSTIPATION; Start 08/06/16 at 18:30 Assessment/Plan Additional Assessment/Plan Rehab- MMT with a right comminuted patellar fracture and a spiral fracture of the proximal shaft of the left humerus, treated non-operatively, Continue rehab treatment plan Acute pain -under good control Myelodysplastic syndrome with anemia and thrombocytopenia. F/B per hematology. Diabetes mellitus type 2, with diabetic neuropathy Neuropathy controlled with gabapentin. Hypertension. BP controlled, continue current treatment. Hyperlipidemia. Overactive bladder with urinary incontinence. Continue oxybutynin. GERD. Continue PPI. s/p UTI, present on admission Glaucoma. Continue eye drops. BUDDY DUGGAN MD Aug 07, 2016 12:11
--- NOTE | 2016-08-07 14:37 | CONS ---
Date/Time of Note Date/Time of Note DATE: 08/07/16 TIME: 14:36 Consult Date/Type/Reason Admit Date/Time Aug 01, 2016 at 12:06 Initial Consult Date 08/03/15 Type of Consultation: im Ordering Provider: ARMANDO ARANA DO Subjective SUBJECTIVE: The patient is stable, no acute events overnight. No fevers, chills, nausea, vomiting. OBJECTIVE: HEENT: Head is normocephalic. NECK: Supple. HEART: Regular rate. LUNGS: Show diminished breath sounds at base. ABDOMEN: Soft, nontender to palpation without rebound or guarding. EXTREMITIES: Negative for clubbing, cyanosis, no edema. DERMATOLOGIC: No rashes. MUSCULOSKELETAL: No joint effusions. NEUROLOGIC: No change in exam. reviewed. ASSESSMENT AND PLAN: 1. Status post open reduction and internal fixation left hip. The patient is currently stable. Continue PT, OT. 2. Diabetes type 1. Continue current insulin regimen. Follow up with endocrinology. 3. Hyperkalemia, resolved, etiology is likely due to hypoglycemia. 4. Hypertension. Continue current blood pressure regimen. 5. Dyslipidemia. Continue fish oil. 6. Anemia. Continue to monitor H and H levels. 7. Gastrointestinal and deep venous thrombosis prophylaxis. Continue proton pump inhibitor and Lovenox. Objective Vital Signs Date Time Temp Pulse Resp B/P Pulse Ox O2 Delivery O2 Flow Rate FiO2 08/07/16 07:10 97.8 64 18 120/58 95 08/06/16 08:00 Room Air Intake and Output 08/06/16 08/06/16 08/07/16 15:00 23:00 07:00 Intake Total 720 ml 560 ml Output Total 400 ml Balance 320 ml 560 ml Results/Medications Result Diagram: 08/04/16 1424 Results 24 hrs Laboratory Tests Test 08/06/16 14:45 08/06/16 14:53 08/06/16 15:19 08/06/16 15:39 Bedside Glucose 56 L 77 74 87 Test 08/06/16 16:54 08/06/16 20:15 08/07/16 08:16 08/07/16 12:21 Bedside Glucose 127 124 221 H 152 Medications Current Medications Docusate Sodium (Colace) 100 mg BID PO Last administered on 08/07/16t 08:36; Admin Dose 100 MG; Start 08/01/16 at 21:00 Senna (Senokot) 1 tab HS PO Last administered on 08/06/16 20:09; Admin Dose 1 TAB; Start 08/01/16 at 21:00 Magnesium Hydroxide (Milk Of Mag) 30 ml BID PRN PO CONSTIPATION Last administered on 08/06/16 08:16; Admin Dose 30 ML; Start 08/01/16 at 14:30 Lactulose (Enulose) 20 gm DAILY PRN PO CONSTIPATION Last administered on 20:08; Admin Dose 20 GM; Start 08/01/16 at 14:30 Bisacodyl (Dulcolax Supp) 10 mg DAILY PRN [place] CONSTIPATION; Start 08/01/16 at 14:30 Patient Own Medication 1 ea HS NASAL Last administered on 08/06/16 20:09; Admin Dose 1 EA; Start 08/01/16 at 21:00 Diagnostic Test (Pha) (Accucheck) 1 ea 02 XX ; Start 08/02/16 at 02:00 Aspirin (Aspirin) 81 mg DAILY PO Last administered on 08/07/16 08:36; Admin Dose 81 MG; Start 08/02/16 at 09:00 Lisinopril (Zestril) 10 mg DAILY PO Last administered on 08/07/16 08:37; Admin Dose 10 MG; Start 08/02/16 at 09:00 Montelukast Sodium (Singulair) 10 mg HS PO Last administered on 08/06/16 20:09 ; Admin Dose 10 MG; Start 08/01/16 at 21:00 Atorvastatin Calcium (Lipitor) 20 mg HS PO Last administered on 08/06/16 20:09 ; Admin Dose 20 MG; Start 08/01/16 at 21:00 Acetaminophen (Tylenol Tab) 650 mg Q6H PRN PO PAIN AND OR ELEVATED TEMP; Start 08/01/16 at 15:00 Miscellaneous Information 1 ea NOTE XX ; Start 08/01/16 at 15:30 Glucose (Glutose) 15 gm Q15M PRN PO DECREASED GLUCOSE; Start 08/01/16 at 15:30 Glucose (Glutose) 22.5 gm Q15M PRN PO DECREASED GLUCOSE; Start 08/01/16 at 15: 30 Dextrose (D50w Syringe) 25 ml Q15M PRN IV DECREASED GLUCOSE; Start 08/01/16 at 15:30 Dextrose (D50w Syringe) 50 ml Q15M PRN IV DECREASED GLUCOSE; Start 08/01/16 at 15:30 Glucagon (Glucagen) 1 mg Q15M PRN IM DECREASED GLUCOSE; Start 08/01/16 at 15: 30 Glucose (Glutose) 15 gm Q15M PRN BUCCAL DECREASED GLUCOSE; Start 08/01/16 at 15:30 Enoxaparin Sodium (Lovenox) 40 mg DAILY SC Last administered on 08/07/16 08:34 ; Admin Dose 40 MG; Start 08/03/16 at 09:00 Pantoprazole (Protonix Tab) 40 mg DAILY@06 PO Last administered on 08/07/16 06: 07; Admin Dose 40 MG; Start 08/02/16 at 13:30 Fish Oil (Fish Oil) 2,000 mg BID PO Last administered on 08/07/16 08:36; Admin Dose 2,000 MG; Start 08/03/16 at 21:00 Acetaminophen/ Hydrocodone Bitart ([place] (5/325)) 2 tab Q4H PRN PO PAIN LEVEL 6 -10 Last administered on 08/07/16 09:40; Admin Dose 2 TAB; Start 08/04/16 at 09: 30 Acetaminophen/ Hydrocodone Bitart ([place] (5/325)) 1 tab Q4H PRN PO PAIN LEVEL 1 -5; Start 08/04/16 at 10:00 Insulin Glargine (Lantus) 15 unit QHS SC Last administered on 08/06/16 20:28; Admin Dose 15 UNIT; Start 08/05/16 at 21:00 Insulin Glargine (Lantus) 26 unit QAM SC Last administered on 08/07/16 08:33; Admin Dose 20 UNIT; Start 08/06/16 at 09:00 Lactulose (Enulose) 10 gm DAILY PRN PO CONSTIPATION; Start 08/06/16 at 18:30 YOLI MCKNIGHT MD Aug 07, 2016 14:37
[2016-08-07 19:53] VITALS: BP 112/57; RESP 18
[2016-08-07] MEDS: ATORVASTATIN 20 MG TAB PO SCH (20:46)
[2016-08-07] MEDS: NASACORT NASAL SCH (20:46)
[2016-08-07] MEDS: MONTELUKAST 10 MG TAB PO SCH (20:46)
[2016-08-07] MEDS: SENNA TAB PO SCH (20:47)
[2016-08-08] MEDS: ACCUCHECK XX SCH (02:00)
[2016-08-08] MEDS: PANTOPRAZOLE (EC) 40 MG TAB PO SCH (06:18)
[2016-08-08 07:28] VITALS: BP 125/60; RESP 18
[2016-08-08] MEDS: INSULIN ASPART [NOVOLOG] 3 ML PEN SC SCH ×4 (07:59→12:40)
[2016-08-08 08:00] VITALS: BP 125/60; PULSE 65; RESP 18
[2016-08-08] MEDS: FISH OIL 1,000 MG CAP PO SCH (08:32)
[2016-08-08] MEDS: DOCUSATE SODIUM 100 MG CAP PO SCH (08:32)
[2016-08-08] MEDS: ASPIRIN 81 MG TAB PO SCH (08:32)
[2016-08-08] MEDS: ENOXAPARIN 40 MG/0.4 ML SYG SC SCH (08:33)
[2016-08-08] MEDS: INSULIN GLARGINE [LANtus] 3 ML PEN SC SCH (08:34)
[2016-08-08] MEDS: LISINOPRIL 10 MG TAB PO SCH (08:35)
[2016-08-08] MEDS: HYDROCODONE/APAP (5/325) TAB PO PRN (12:37)
--- NOTE | 2016-08-08 16:39 | CONS ---
Date/Time of Note Date/Time of Note DATE: 08/08/16 TIME: 16:39 Consult Date/Type/Reason Admit Date/Time Aug 01, 2016 at 12:06 Initial Consult Date 08/03/15 Type of Consultation: im Ordering Provider: ARMANDO ARANA DO Subjective SUBJECTIVE: The patient is stable, no acute events overnight. No fevers, chills, nausea, vomiting. pending discharge OBJECTIVE: HEENT: Head is normocephalic. NECK: Supple. HEART: Regular rate. LUNGS: Show diminished breath sounds at base. ABDOMEN: Soft, nontender to palpation without rebound or guarding. EXTREMITIES: Negative for clubbing, cyanosis, no edema. DERMATOLOGIC: No rashes. MUSCULOSKELETAL: No joint effusions. NEUROLOGIC: No change in exam. reviewed. ASSESSMENT AND PLAN: 1. Status post open reduction and internal fixation left hip. The patient is currently stable. Continue PT, OT. 2. Diabetes type 1. Continue current insulin regimen. Follow up with endocrinology. 3. Hyperkalemia, resolved, etiology is likely due to hypoglycemia. 4. Hypertension. Continue current blood pressure regimen. 5. Dyslipidemia. Continue fish oil. 6. Anemia. Objective Vital Signs Date Time Temp Pulse Resp B/P Pulse Ox O2 Delivery O2 Flow Rate FiO2 08/08/16 08:00 97.7 65 18 125/60 95 Room Air Intake and Output 08/07/16 08/07/16 08/08/16 15:00 23:00 07:00 Intake Total 480 ml 240 ml Output Total 400 ml 200 ml 300 ml Balance 80 ml 40 ml -300 ml Results/Medications Result Diagram: 08/04/16 1424 Results 24 hrs Laboratory Tests Test 08/07/16 17:07 08/07/16 20:54 08/08/16 07:36 08/08/16 12:13 Bedside Glucose 100 138 175 145 YOLI MCKNIGHT MD Aug 08, 2016 16:39
== END 2016-08-08 14:47 | disposition home health service (06) | DRG 536 ==
LOC: VRC 12:06
PROVIDERS: ADMIT Physical Medicine & Rehabilitation; ATTEND Internal Medicine Nephrology
DX: S72.142A Displaced intertrochanteric fracture of left femur, initial encounter for closed fracture (principal); I10 Essential (primary) hypertension; E87.5 Hyperkalemia; E10.9 Type 1 diabetes mellitus without complications; E78.5 Hyperlipidemia, unspecified; D64.9 Anemia, unspecified; Z79.4 Long term (current) use of insulin; R52 Pain, unspecified
CPT/HCPCS: 80053; 81003; 82962; 83036; 84132; 85025; 87081; 87086; 95852; 97001; 97003; 97110; 97112; 97116; 97150; 97530; 97535; J1650; J1815